=== PATIENT | female | born 1970 | race Caucasian/White ===

== ENCOUNTER 2023-10-19 04:04 | Day surgery (SDC) | payer BC ==
[2023-10-17 17:05] VITALS: BMI 24.3
[2023-10-19] MEDS ORDERED: METHYLENE BLUE 50 MG/10 ML AMPUL ONE (07:29)
[2023-10-19] MEDS ORDERED: BUPIVACAINE HCL/PF 0.25% (2.5MG/ML) 10 ML VIAL ONE (07:29)
[2023-10-19] MEDS ORDERED: PROPOFOL 40 ML ONE ×2 (07:44→10:41)
[2023-10-19] MEDS ORDERED: ROCURONIUM BROMIDE 50 MG/5 ML SYRINGE ONE (07:44)
[2023-10-19] MEDS ORDERED: SUCCINYLCHOLINE CHLORIDE 200 MG/10 ML SYRINGE ONE (07:44)
[2023-10-19] MEDS ORDERED: MIDAZOLAM HCL 2 MG/2 ML SINGLE DOSE VIAL ONE ×2 (07:44→11:37)
[2023-10-19] MEDS ORDERED: PROPOFOL 60 ML ONE (07:45)
[2023-10-19] MEDS ORDERED: DEXAMETHASONE SOD PHOSPHATE 10 MG/1 ML VIAL ONE (08:09)
[2023-10-19] MEDS ORDERED: DEXMEDETOMIDINE HCL 200 MCG/2 ML IVPB ONE (08:09)
[2023-10-19] MEDS ORDERED: HYDROmorphone HCl 2 MG/ML VIAL ONE (08:14)
[2023-10-19] MEDS: ceFAZolin SODIUM 1 GM VIAL IVPB ONE ×2 (08:20→15:16)
[2023-10-19] MEDS ORDERED: KETAMINE HCL 200 MG/20 ML VIAL ONE (08:53)
[2023-10-19] MEDS ORDERED: PROPOFOL 20 ML ONE ×2 (09:10→12:15)
[2023-10-19] MEDS ORDERED: oxyCODONE HCL 5 MG TABLET PO PRN ×2 (11:13)
[2023-10-19] MEDS ORDERED: ACETAMINOPHEN INJECTION 100 ML IVPB ONE (11:38)
[2023-10-19] MEDS ORDERED: SUGAMMADEX SODIUM 200 MG/2 ML VIAL ONE (12:35)
[2023-10-19] MEDS: LACTATED RINGERS SOLUTION 1,000 ML IV SCH (12:55)
[2023-10-19 16:02] VITALS: BP 129/85; PULSE 92; RESP 18; TEMP 97.3
== END 2023-10-19 16:00 | disposition home or self-care (01) ==
LOC: JASU-SURG 04:04
PROVIDERS: ATTEND Plastic Surgery
PROC: 0HBV0ZZ Excision of Bilateral Breast, Open Approach (ICD-10-PCS; principal; 2023-10-19 08:00)
DX: N62 Hypertrophy of breast (principal); L30.4 Erythema intertrigo; M54.89 Other dorsalgia; M54.2 Cervicalgia; M25.512 Pain in left shoulder; M25.511 Pain in right shoulder
CPT/HCPCS: 88305-TC; 94760; J0131; J1100; Q9968